=== PATIENT | male | born 1940 | race Caucasian/White ===

== ENCOUNTER → 2018-03-26 | Outpatient (CLI) | payer MEDICARE, OTHER ==
--- NOTE | 2018-03-26 12:02 | Diagnostic Imaging Report ---
Exam: Left hip series, 2 views. History: Osteoarthritis left hip. Comparison: None. Findings: Left hip radiographs demonstrate moderate to severe degenerative changes with joint space narrowing, bony osteophyte formation, and subchondral sclerosis. No evidence of acute fracture, malalignment, or soft tissue abnormality. Impression: Moderate to severe left hip osteoarthritis. Signed by: Dr. Lynne Rodriguez MD on 03/26/2018 11:58 AM
== END ==
LOC: RAD 10:29
PROVIDERS: ATTEND Family Medicine
DX: M16.12 Unilateral primary osteoarthritis, left hip (principal)

== ENCOUNTER 2018-04-30 07:43 | Inpatient (IN) | payer MEDICARE, OTHER ==
--- NOTE | 2018-04-27 15:52 | Diagnostic Imaging Report ---
Frontal and lateral views of the chest. HISTORY: Preop, left hip replacement COMPARISON: None available. DISCUSSION: Lungs: The lungs are well inflated. No evidence of a consolidative pneumonia or pulmonary alveolar edema. Pleura: No pleural effusion or pneumothorax. Heart and mediastinum: The cardiomediastinal silhouette appears unremarkable. Bones and soft tissues: Appear unremarkable. IMPRESSION: No acute radiographic abnormality. Signed by: Dr. Fermín Jeff D.O., M.M.M. on 04/27/2018 3:48 PM
[~2018-04-30] VITALS: Ht 177.8 cm; Wt 94.8 kg
[2018-04-30] MEDS: ACETAMINOPHEN 1000 MG/100 ML IV SCH ×2 (00:10→16:58)
[~2018-04-30 07:43] MED LIST: ASPIR 8181 MG PO; FINASTERIDE5 MG PO; FISH OIL 1,0001 EAC2 PO; GABAPENTIN100 MG PO; LOSARTAN POTASS25 MG PO; PROBIOTIC PO; ROPIVACAINE 246.25 MG, EPINEPHRINE HCL 1:1000 1ML 0.5 MG, CLONIDINE HCL 0.08 MG, KETORO... INJ ONE; TAMSULOSIN HCL0.4 MG PO; TERAZOSIN HCL2 MG PO
--- OUTSIDE RECORDS SUMMARY | 2018-04-30 07:45 | XMS REPORT ---
Author Author [facility] Address Unknown Phone Unavailable Care Team Providers Care Car Lubricator Name Role Phone PABLO HARDIN Unavailable Unavailable Olivia PAZ Unavailable Unavailable Problems This patient has no known problems. Allergies, Adverse Reactions, Alerts This patient has no known allergies or adverse reactions. Medications This patient has no known medications. Results Test Description Test Time Test Comments Text Results Atomic Results Result Comments CHEST 2 VIEWS 2018-04-27 15:47:00 [place] [id number] Patient Name: BRENDA LUCAS MR #: [id number] : 1940 Age/Sex: 77/M Req #: [id number] Adm Physician: Ordered by: PABLO HARDIN MD Report #: [id number] Location: OR Room/Bed: Procedure: [id number] DX/CHEST 2 VIEWS Exam Date: 04/27/18 Exam Time: 1435 REPORT STATUS: Signed Frontal and lateral views of the chest. HISTORY: Preop, left hip replacement COMPARISON: None available. DISCUSSION: Lungs: The lungs are well inflated. No evidence of a consolidative pneumonia or pulmonary alveolar edema. Pleura: No pleural effusion or pneumothorax. Heart and mediastinum: The cardiomediastinal silhouette appears unremarkable. Bones and soft tissues: Appear unremarkable. IMPRESSION: No acute radiographic abnormality. Signed by: Marta NuñezO., M.M.M. on 04/27/2018 3:48 PM Dictated By: MELINA TAVAREZ DO 1548 Transcribed By: ARTIE on 04/27/18 1548 COPY TO: PABLO HARDIN MD HIP LEFT 2-3 VW (+/- PELVIS) 2018-03-26 11:57:00 [place] [address] Patient Name: BRENDA LUCAS MR #: [id number] : 1940 Age/Sex: 77/M Req #: [id number] Adm Physician: Ordered by: SUHAIL PAZ MD Report #: [id number] Location: [facility] Room/Bed: Procedure: [id number] DX/HIP LEFT 2-3 VW (+/- PELVIS) Exam Date: Exam Time: REPORT STATUS: Signed Exam: Left hip series, 2 views. History: Osteoarthritis left hip. Comparison: None. Findings: Left hip radiographs demonstrate moderate to severe degenerative changes with joint space narrowing, bony osteophyte formation, and subchondral sclerosis. No evidence of acute fracture, malalignment, or soft tissue abnormality. Impression: Moderate to severe left hip osteoarthritis. Signed by: Dr. Blayne Baldwin MD on 03/26/2018 11:58 AM Dictated By: BLAYNE BALDWIN MD 1158 Transcribed By: ARTIE on 03/26/18 1158 COPY TO: SUHAIL PAZ MD
[2018-04-30] MEDS ORDERED: CELECOXIB 200 MG CAP ONE (08:00)
[2018-04-30] MEDS ORDERED: GABAPENTIN 300 MG CAP ONE (08:01)
[2018-04-30] MEDS ORDERED: DEXAMETHASONE SOD PHOS 10 MG/1 ML VIAL ONE (08:01)
[2018-04-30] MEDS ORDERED: CEFAZOLIN SOD 2 GM/D5W 50ML 50 ML IV ONE (08:01)
[2018-04-30] MEDS ORDERED: TRANEXAMIC ACID 1,000 MG/10 ML ML ONE (09:21)
[2018-04-30] MEDS ORDERED: VANCOMYCIN HCL 1 GM VIAL ONE (09:21)
[2018-04-30] MEDS ORDERED: SODIUM CHLORIDE 0.9% 500ML 500 ML ONE (09:21)
[2018-04-30] MEDS ORDERED: BACITRACIN 50,000 UNIT VIAL ONE (09:22)
[2018-04-30] MEDS ORDERED: BUPIVACAINE 7.5MG/ML /DEXTROSE 82.5MG/ML 2 ML AMP INJ ONE (09:23)
[2018-04-30] MEDS: SODIUM CHLORIDE 0.9% 1000ML 1,000 ML IV SCH ×2 (11:31→21:31)
[2018-04-30] MEDS ORDERED: DIPHENHYDRAMINE HCL INJ 50 MG/ML VIAL IM/IV PRN (11:45)
[2018-04-30] MEDS ORDERED: KETOROLAC TROMETHAMINE 30 MG/ML VIAL IV PRN (11:45)
[2018-04-30] MEDS ORDERED: ACETAMINOPHEN 650 MG SUPP PR PRN (11:45)
[2018-04-30] MEDS ORDERED: HYDROCODONE/APAP 5MG-325MG TAB PO PRN (11:45)
[2018-04-30] MEDS ORDERED: DOCUSATE SODIUM 100 MG CAP PO PRN (11:45)
[2018-04-30] MEDS ORDERED: HYDROCODONE/APAP 7.5MG-325MG 1 EA TAB PO PRN (11:45)
[2018-04-30] MEDS ORDERED: ZOLPIDEM TARTRATE 5 MG TAB PO PRN (11:45)
[2018-04-30] MEDS ORDERED: ONDANSETRON HCL INJ 2MG/ML 2ML 2 MG/ML VIAL IV PRN (11:45)
[2018-04-30] MEDS ORDERED: PROMETHAZINE HCL (IM) 25 MG/ML VIAL INJ PRN (11:45)
--- NOTE | 2018-04-30 12:12 | Diagnostic Imaging Report ---
PELVIS - 2 Images HISTORY: Postop, left hip COMPARISON: Left hip radiographs March 26, 2018 FINDINGS: Sensitivity limited by portable technique. Soft tissue attenuation partially limits sensitivity of the exam. Bones: No acute displaced fracture. No aggressive osseous lesion. Joints: Status post total left hip arthroplasty. Moderate degenerative changes of the right hip. Soft tissues: Regional soft tissue air foci and multiple metallic skin sy, compatible with recent surgery. IMPRESSION: 1. Status post total left hip arthroplasty, no evidence of immediate hardware-related complication. 2. Moderate right hip osteoarthrosis. Signed by: Dr. Fermín Jeff D.O., M.M.M. on 04/30/2018 12:08 PM
--- NOTE | 2018-04-30 14:01 | NUR ---
Patient admitted to unit from PACU. Patient is post op left hip replacement. Dressing clean and dry to hip. No drainage noted. Lung león clear to auscultation. Bowel sounds present x4 and active. No edema noted. Bilateral SCD's in place. Right hand IV in place. IV fluids infusing. Patient had a spinal block and has no c/o pain. Patient is able to feel the touch on his toes. Pedal pulses palpable. No s/s of distress noted
[2018-04-30 14:35] VITALS: BP 128/66
[2018-04-30 15:41] VITALS: BP 128/66
[2018-04-30 15:49] VITALS: BP 128/66
[2018-04-30 17:02] VITALS: BP 118/62
[2018-04-30] MEDS: CEFAZOLIN SOD 1 GM/NS 50ML 50 ML IV SCH (17:16)
[2018-04-30] MEDS: ASPIRIN 325 MG TAB PO SCH (17:45)
[2018-04-30] MEDS: CELECOXIB 200 MG CAP PO SCH (17:45)
[2018-04-30] MEDS ORDERED: FENTANYL CITRATE/PF 100MCG/2 ML INJ ONE (17:50)
[2018-04-30] MEDS ORDERED: MIDAZOLAM HCL 2 MG/2 ML VIAL ONE (17:50)
[2018-04-30] MEDS ORDERED: PROPOFOL IV EMULSION 10 MG/ML 20 ML VIAL ONE (18:03)
[2018-04-30] MEDS ORDERED: ONDANSETRON HCL INJ 2MG/ML 2ML 2 MG/ML VIAL ONE (18:03)
[2018-04-30] MEDS ORDERED: ACETAMINOPHEN 1000 MG/100 ML IV ONE (18:03)
[2018-04-30] MEDS ORDERED: LIDOCAINE HCL 2% LOCAL INJ 5 ML SDV VIAL INJ ONE (18:03)
--- NOTE | 2018-04-30 19:45 | NUR ---
PT VOIDED AT THIS TIME,300 ML URINE OUTPUT NOTED.WILL CONTINUE TO MONITOR.
[2018-04-30 20:00] VITALS: BP 122/61
[2018-04-30 21:00] VITALS: BP 122/61
[2018-04-30] MEDS ORDERED: TAMSULOSIN HCL 0.4 MG CAP PO SCH (21:00)
[2018-04-30] MEDS ORDERED: GABAPENTIN 100 MG CAP PO SCH (22:00)
--- NOTE | 2018-04-30 22:55 | NUR ---
PT VOIDED AGAIN AT THIS TIME.
[2018-05-01] VITALS: BP 110/56
[2018-05-01] MEDS: ACETAMINOPHEN 1000 MG/100 ML IV SCH ×2 (00:10→06:00)
[2018-05-01] MEDS: CEFAZOLIN SOD 1 GM/NS 50ML 50 ML IV SCH ×2 (02:15→09:20)
[2018-05-01 06:30] LABS: HEMATOCRIT 35.9 % (38.2-49.6); HEMOGLOBIN 12.3 g/dL (14.0-18.0)
--- NOTE | 2018-05-01 06:42 | NUR ---
REPORT GIVEN TO ONCOMING NURSE,WALKING ROUNDS MADE.PT RESTING IN BED WITH NO S/S OF DISTRESS.
--- NOTE | 2018-05-01 06:43 | Consultation ---
DATE OF CONSULTATION: Patient is here status post left hip arthroplasty. Consulted for medical management. PAST MEDICAL HISTORY: History of hypertension, history of hyperlipidemia, history of esophagitis and also history of BPH. MEDICINES: He takes at home are: 1. Finasteride 5 mg daily. 2. Gabapentin 100 mg 3 times a day. 3. Losartan 50 mg daily. 4. Tamsulosin. ALLERGIES: NO KNOWN DRUG ALLERGIES. SURGICAL HISTORY: Includes history of appendectomy and other illnesses include osteoarthritis and chronic allergies. REVIEW OF SYSTEMS: At this time, the patient is pain controlled after surgery with just Tylenol. No chest pain. No shortness of breath. No nausea, vomiting, diarrhea. No constipation. No rectal bleeding, hematochezia and no hematemesis. PHYSICAL EXAMINATION GENERAL: The patient is alert and oriented times 3. HEENT: Normocephalic and atraumatic. Pupils reactive to light and accommodation. CV: S1 and S2 normal. Regular rate and rhythm. ABDOMEN: Nontender and nondistended. EXTREMITIES: No clubbing. No cyanosis. No edema. Left hip bandage clean and dry. No seepage noted. ASSESSMENT 1. Unilateral primary osteoarthritis of left hip: Status post left hip arthroplasty. 2. History of hypertension: Will restart his losartan. 3. History of BPH: Will restart his finasteride and his tamsulosin and terazosin. Further recommendations per clinical course. The patient is very stable. Further disposition on discharge depending on Dr. Zafar. At this time, medically stable. Continue to monitor his H and H. Normal postsurgical recommendations to continue. Job#: [id number]
--- NOTE | 2018-05-01 07:18 | NUR ---
Rcvd patient in report this am. Patient is asleep in bed at this time. No s/s of distress noted
[2018-05-01] MEDS: SODIUM CHLORIDE 0.9% 1000ML 1,000 ML IV SCH (07:31)
[2018-05-01 07:50] VITALS: BP 122/65
[2018-05-01] MEDS: ASPIRIN 325 MG TAB PO SCH (08:11)
[2018-05-01] MEDS ORDERED: ASPIRIN325 MG PO (08:59)
[2018-05-01] MEDS ORDERED: FISH OIL PO SCH (09:00)
[2018-05-01] MEDS ORDERED: [UNRECOGNIZED DRUG - OTHER] PO SCH (09:00)
[2018-05-01] MEDS ORDERED: TERAZOSIN HCL 1 MG CAP PO SCH (09:00)
[2018-05-01] MEDS ORDERED: FATTY ACIDS PO SCH (09:00)
[2018-05-01] MEDS ORDERED: OMEGA PO SCH (09:00)
[2018-05-01] MEDS ORDERED: TERAZOSIN HCL 5 MG CAP PO SCH (09:00)
[2018-05-01] MEDS ORDERED: FINASTERIDE 5 MG TAB PO SCH (09:00)
[2018-05-01] MEDS ORDERED: OMEGA 3 POLYUNSAT FATTY ACIDS 1000 MG SOFTGEL PO SCH (09:00)
[2018-05-01] MEDS ORDERED: LOSARTAN POTASSIUM 25 MG TAB PO SCH (09:00)
[2018-05-01] MEDS ORDERED: NON-FORMULARY MEDICATION (Terazosin Hcl 2 MG) PO SCH (09:00)
[2018-05-01] MEDS ORDERED: GABAPENTIN 100 MG CAP PO SCH (09:00)
[2018-05-01 09:46] VITALS: BP 122/65
--- NOTE | 2018-05-01 10:40 | NUR ---
Patient is post op day 1 left hip replacement. Dressing to left hip clean, dry, intact. No c/o pain at this time. Lung león clear to auscultation. Bowel sounds present x4. Patient passing gas. No edema noted. Right hand 20G IV in place. Patient ambulating with a walker and assistance.
--- NOTE | 2018-05-01 10:50 | NUR ---
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 CM/SW role and care transitions discussed. Anticipated discharge plan discussed along with duration of care. CM/SW discussed patients right to make decisions in care. CM/SW work hours given. Patient lives: with Janie Admit/Transfer: from PACU Hospital/ER visits since last admit: last hospitalization in 1945 POA/Emergency contact: Janie Randall [phone] Current/Previous Home Health: none PCP/Follow-up Care: Dr. Velasquez - PCP; Dr. Zafar - ortho - pt to follow up next ; stated he will call to get an appointment time Current/Previous DME: none Medications (referring to index hospitalization or the first time you were in the hospital) a. Were changes made in your medications when you were in the hospital on [index hospitalization]? n/a b. Did you understand the changes? n/a c. Were you able to obtain your new medications right away? n/a d. Were you able to take your medications like the doctor wanted you to? n/a e. Did the hospital give you an accurate, easy to understand list of medications when you left? n/a Scale of 1-10 how comfortable does patient feel with disease management in outpatient settin Other Services: none Employment Status: retired Areas of Concerns: left hip surgery Referral Needs: home health, DME DC plans pre-arranged by Dr. Zafar's office as follows. Choice letter was signed and placed in chart. Copy to pt. Home Health with [facility] [phone]. CM called and spoke to Grecia and she stated that pt will be seen tomorrow. DME with [facility]. Spoke to María Elena. Pt is on schedule to be delivered today. Stated she can have DME delivered to hospital in a few hours. Education Needs: post operative instructions IMM/BRANDON given and signed (if applicable): IMM was delivered and explained. He verbalized understanding. Signed copy in chart. Copy to pt. Goal for discharge: home with home health CM/SW left business card at the bedside with contact information. Name and number was also written on the patients whiteboard. Patient verbalized understanding of discussion. CM will follow-up with ongoing discharge and transition of care needs.
[2018-05-01] MEDS: CELECOXIB 200 MG CAP PO SCH (11:24)
[2018-05-01] MEDS ORDERED: ACETAMINOPHEN 1000 MG/100 ML IV PRN (11:45)
[2018-05-01 12:57] VITALS: BP 114/59
[2018-05-01] MEDS ORDERED: NORCO 7.5-3251 EACH PO (13:07)
--- NOTE | 2018-05-01 13:30 | NUR ---
Removed IV from right hand. Pressure dressing applied.
--- NOTE | 2018-05-01 13:57 | NUR ---
Patient discharged from facility to home. Patient assisted out via staff in wheelchair, Reviewed all discharge paperwork, follow up appts and RX's given
--- NOTE | 2018-05-02 02:13 | Operative Report ---
DATE OF PROCEDURE: 04/30/2018 PONY RIDE OPERATOR: Cameron Montenegro PA-C. PREOPERATIVE DIAGNOSIS: Osteoarthritis, left hip. POSTOPERATIVE DIAGNOSIS: Osteoarthritis, left hip. PROCEDURE: Left total hip arthroplasty. INDICATIONS: The patient is a 77-year-old gentleman, who has advanced osteoarthritis of his left hip. He has failed conservative management and would like to proceed with definitive intervention. The risks and benefits of a left total hip replacement were explained. The implants, hospital stay, and recovery were discussed. He states he understands and wishes to proceed. DESCRIPTION OF PROCEDURE: The patient was brought to the operating room and given a spinal anesthetic. He received prophylactic antibiotics and tranexamic acid. He was positioned in the right lateral decubitus position. His left hip was prepped and draped in the sterile manner. A limited incision posterior approach was made to the left hip. Hemostasis was obtained with electrocautery. A Charnley self-retaining retractor was placed. Care was taken to avoid injury to the sciatic nerve. The posterior capsule was carefully exposed and released. The hip was dislocated. An oscillating saw was used to resect the femoral head. Complete loss of articular cartilage was noted. Acetabular retractors were carefully placed. Additional soft tissue releases were necessary to obtain appropriate visualization of the socket. Labral remnants were excised with a long handle surgical knife. The true floor of the acetabulum was established with a 46-mm reamer. The socket was then sequentially reamed to 55 mm. This accomplished bleeding hemispherical cancellous bone. A Shane [employer] 56-mm socket was then impacted into place. Its fixation was augmented with a single 25-mm screw, placed into the ilium. A highly crosslinked neutral polyethylene liner with a 36-mm inner diameter was then seated. The socket had been thoroughly irrigated on multiple occasions with a shower tip pulsatile lavage during this portion of the case. A spray bottle with polymixin and vancomycin was also used on several occasions. The socket was packed with a moistly soaked lap sponge and attention was directed towards the proximal femur. A box-cutting osteotome and taper pin reamer were used to establish entry to the femoral canal. Taperloc broaches were impacted. A size 14 stem provided appropriate stability for trial reductions. A standard 36-mm head provided appropriate soft tissue balancing and stability to a full arc of motion. The trial implants were removed. A 100 mL premixed pericapsular CHRISTIN injection was placed into the surrounding soft tissue. The implants were seated and a final reduction was performed. Once again, the hip was put through a full arc of motion and noted to have good stability. The posterior capsule was carefully repaired with interrupted #2 Ethibond. The gluteal fascia was closed with interrupted #2 Ethibond. The skin was closed with subcuticular Vicryl and sy. A sterile bandage was applied. The patient was returned to the supine position and transported to the recovery room in stable condition. Estimated blood loss was 75 mL. All needle and sponge counts were correct. Shayan Zafar MD DR/SABINE /[id number]
== END 2018-05-01 13:57 | disposition home health service (06) | DRG 470 ==
LOC: OR 07:43 → PACU V 11:32 → MED/SURG 14:01
PROVIDERS: ADMIT Specialist; ATTEND Specialist
PROC: 0SR904A Replacement of Right Hip Joint with Ceramic on Polyethylene Synthetic Substitute, Uncemented, Open Approach (ICD-10-PCS; principal; 2018-04-30 10:04)
DX: M16.11 Unilateral primary osteoarthritis, right hip (principal); I10 Essential (primary) hypertension; N40.0 Benign prostatic hyperplasia without lower urinary tract symptoms
CPT/HCPCS: 36415; 71046; 72170; 85014; 85018; 86850; 86900; 86920; 97139; J0171; J0690; J1100; J1885; J2001; J2250; J2405; J2795; J3370; J7030; J7040

== ENCOUNTER → 2022-07-26 | Day surgery (SDC) | payer MEDICARE, OTHER ==
[2022-07-20 11:09] LABS: BASOPHILS # (AUTO) 0.1 (0.0-0.1); BASOPHILS % 0.9 % (0.0-1.0); EOSINOPHILS # (AUTO) 0.2 (0.0-0.4); EOSINOPHILS % 2.9 % (0.0-6.0); HEMATOCRIT 39.5 % (38.2-49.6); HEMOGLOBIN 13.5 g/dL (14.0-18.0); LYMPHOCYTES # (AUTO) 2.7 (1.0-3.2); LYMPHOCYTES % 49.3 % (18.0-39.1); MEAN CORPUSCULAR HEMOGLOBIN 31.6 pg (28-32); MEAN CORPUSCULAR HGB CONC 34.2 g/dL (31-35); MEAN CORPUSCULAR VOLUME 92.5 fL (81-99); MONOCYTES # (AUTO) 0.4 (0.2-0.8); MONOCYTES % 6.4 % (4.4-11.3); NEUTROPHILS # (AUTO) 2.2 (2.1-6.9); NEUTROPHILS % 40.1 % (38.7-80.0); PLATELET COUNT 138 x10e3/uL (140-360); RED BLOOD COUNT 4.27 x10e6/uL (4.3-5.7); RED CELL DISTRIBUTION WIDTH 13.3 % (11.7-14.4)
[~2022-07-26] MED LIST changes: +ASPIRIN325 MG PO; +FENTANYL CITRATE/PF 100MCG/2 ML INJ ONE; +FUROSEMIDE40 MG PO; +MIDAZOLAM HCL 2 MG/2 ML VIAL ONE; +NORCO 7.5-3251 EACH PO; +OR PHACO EYE KIT ONE; +PREOP PHACO EYE KIT ONE; -ROPIVACAINE 246.25 MG, EPINEPHRINE HCL 1:1000 1ML 0.5 MG, CLONIDINE HCL 0.08 MG, KETORO... INJ ONE
[2022-07-26 13:00] VITALS: BP 131/66; PULSE 50; RESP 14; O2SAT 100
== END | disposition home or self-care (01) ==
LOC: OR 09:50
PROVIDERS: ATTEND Ophthalmology
DX: H25.11 Age-related nuclear cataract, right eye (principal); I10 Essential (primary) hypertension; E78.5 Hyperlipidemia, unspecified; Z01.812 Encounter for preprocedural laboratory examination; Z79.82 Long term (current) use of aspirin; Z79.899 Other long term (current) drug therapy
CPT/HCPCS: 36415; 66984; 85025; J2250; V2632

== ENCOUNTER → 2022-08-16 | Day surgery (SDC) | payer MEDICARE, OTHER ==
[~2022-08-16] MED LIST changes: +LACTATED RINGER'S 1,000 ML ONE; -OR PHACO EYE KIT ONE
[2022-08-16 11:40] VITALS: TEMP 97.3
[2022-08-16 11:55] VITALS: BP 132/66; PULSE 47; RESP 16; O2SAT 98
== END | disposition home or self-care (01) ==
LOC: OR 08:21
PROVIDERS: ATTEND Ophthalmology
DX: H25.12 Age-related nuclear cataract, left eye (principal); I12.9 Hypertensive chronic kidney disease with stage 1 through stage 4 chronic kidney disease, or unspecified chronic kidney disease; N18.9 Chronic kidney disease, unspecified; E78.5 Hyperlipidemia, unspecified; M19.90 Unspecified osteoarthritis, unspecified site; Z79.82 Long term (current) use of aspirin; Z79.899 Other long term (current) drug therapy
CPT/HCPCS: 66984; J2250; J3010; J7121; V2632